=== PATIENT | male | born 1955 ===

== ENCOUNTER 2016-06-21 16:52 | Observation (INO) | payer OTHER ==
[2016-06-21 16:58] VITALS: BP 141/64; PULSE 108; RESP 19; TEMP 98.3; O2SAT 94
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
--- NOTE | 2016-06-21 22:48 | ED PDOC ---
- ECG O2 Sat by Pulse Oximetry: 94 Medical Decision Making Medical Decision Making: Pt monitored in the ER. Clear speech and steady gait at discharge. Disposition - Clinical Impression Clinical Impression: Alcohol ingestion - POA Present On Arrival: None - Disposition Disposition: Routine/Home Disposition Time: 22:48 Condition: GOOD
== END 2016-06-21 22:45 | disposition home or self-care (01) ==
LOC: H.ER 16:52 → H.EROBSV 17:22
PROVIDERS: ADMIT Emergency Medicine; ATTEND Emergency Medicine
DX: F10.129 Alcohol abuse with intoxication, unspecified (principal); Y90.8 Blood alcohol level of 240 mg/100 ml or more; F20.9 Schizophrenia, unspecified

== ENCOUNTER 2016-06-24 23:46 | Emergency (ER) | payer OTHER ==
--- NOTE | 2016-06-25 05:34 | ED PDOC ---
HPI: Psych/Substance Abuse Time Seen by Provider: 06/25/16 00:09 Chief Complaint (Nursing): Alcohol Ingestion Chief Complaint (Provider): ETOH History Per: EMS Additional History Per: EMS Additional Complaint(s): 61 y/o male brought in by EMS for acute alcohol intoxication. Patient responsive to verbal stimuli; admits to drinking, denies acute complaints. Past Medical History Reviewed: Historical Data, Nursing Documentation, Vital Signs Vital Signs: Last Vital Signs Temp 99.0 F 06/24/16 23:51 Pulse 76 06/24/16 23:51 Resp 16 06/24/16 23:51 BP 136/89 06/24/16 23:51 Pulse Ox 95 06/24/16 23:51 - Medical History PMH: Schizophrenia - Family History Family History: States: Unknown Family Hx - Immunization History Hx Tetanus Toxoid Vaccination: No Hx Influenza Vaccination: No Hx Pneumococcal Vaccination: No - Home Medications Home Medications: Ambulatory Orders Medication Instructions Recorded No Known Home Med [No Known Home 07/06/13 Med] - Allergies Allergies/Adverse Reactions: Allergies Allergy/AdvReac Type Severity Reaction Status Date / Time No Known Allergies Allergy Verified 06/24/16 23:50 Review of Systems ROS Statement: Except As Marked, All Systems Reviewed And Found Negative Physical Exam - Reviewed Nursing Documentation Reviewed: Yes Vital Signs Reviewed: Yes - Physical Exam Appears: Positive for: Well, Non-toxic, No Acute Distress Head Exam: Positive for: ATRAUMATIC, NORMAL INSPECTION, NORMOCEPHALIC Skin: Positive for: Normal Color Eye Exam: Positive for: Normal appearance, EOMI, PERRL ENT: Positive for: Normal ENT Inspection Cardiovascular/Chest: Positive for: Regular Rate, Rhythm Respiratory: Positive for: Normal Breath Sounds Gastrointestinal/Abdominal: Positive for: Normal Exam Back: Positive for: Normal Inspection Extremity: Positive for: Normal ROM Neurologic/Psych: Positive for: Alert, Oriented - ECG O2 Sat by Pulse Oximetry: 95 - Progress ED Course And Treament: accucheck, alcohol 5:30 Patient awake, alert, oriented x3. Ambulating steady gait. Tolerated food tray Stable for discharge. Disposition - Clinical Impression Clinical Impression: Alcohol intoxication - Patient ED Disposition Is Patient to be Admitted: No Counseled Patient/Family Regarding: Studies Performed, Diagnosis, Need For Followup - Disposition Disposition: Routine/Home Disposition Time: 05:33 Condition: STABLE Instructions: Alcohol Intoxication (ED) Print Language: MACEDONIAN
[2016-06-25 07:18] VITALS: BP 125/73; PULSE 87; RESP 18; TEMP 98; O2SAT 100
== END 2016-06-25 07:18 | disposition home or self-care (01) ==
LOC: H.ER 23:46
DX: F10.129 Alcohol abuse with intoxication, unspecified (principal); Y90.8 Blood alcohol level of 240 mg/100 ml or more

== ENCOUNTER 2016-06-25 10:10 | Inpatient (IN) | payer OTHER ==
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
[2016-06-25 12:39] LABS: BASO % 0.9 % (0.0-2.0); HEMATOCRIT 40.7 % (35.0-51.0); LYMPH # 0.6 K/uL (1.0-4.3); LYMPH % 14.6 % (20.0-40.0); MEAN CELL VOLUME 97.2 fl (80.0-94.0); MEAN CORPUSCULAR HGB CONC 33.9 g/dL (33.0-37.0); MEAN PLATELET VOLUME 8.6 fl (7.2-11.7); MONO # 0.4 K/uL (0.0-0.8); MONO % 8.8 % (0.0-10.0); NEUT # 3.1 K/uL (1.8-7.0); NEUT % 74.7 % (50.0-75.0); NRBC % 0.1 % (0.0-0.0); RED CELL DISTRIBUTION WIDTH 14.8 % (11.5-14.5); WHITE BLOOD COUNT 4.2 K/uL (4.8-10.8)
[2016-06-25 12:48] LABS: ALB/GLOB RATIO 1.2 (1.0-2.1); ALCOHOL SERUM < 10 mg/dl (0-10); ALKALINE PHOSPHATASE 96 U/L (38-126); ALT/SGPT 109 U/L (21-72); AST/SGOT 223 U/L (17-59); BLOOD UREA NITROGEN 10 mg/dl (9-20); CALCIUM 9.2 mg/dL (8.4-10.2); CARBON DIOXIDE 27 mmol/L (22-30); CHLORIDE 101 mmol/L (98-107); GFR AFRICAN-AMERICAN > 60; GLUCOSE,RANDOM 97 mg/dL (75-110); POTASSIUM 4.1 MMOL/L (3.6-5.0); SODIUM 142 mmol/l (132-148); TOTAL PROTEIN 7.6 G/DL (6.3-8.2)
[2016-06-25 14:36] LABS: RBC URINE 1 /hpf (0-3); URINE BILIRUBIN NEGATIVE (NEGATIVE); URINE BLOOD NEGATIVE (NEGATIVE); URINE COLOR YELLOW (YELLOW); URINE GLUCOSE (UA) 50 mg/dL (Normal); URINE KETONE NEGATIVE (NEGATIVE); URINE LEUKOCYTE ESTERASE NEG Leu/uL (Negative); URINE PROTEIN NEGATIVE (NEGATIVE); WBC URINE < 1 /hpf (0-5)
[2016-06-25] MEDS ORDERED: Iohexol 300 100 ML IJ ONE (15:26)
[2016-06-25] MEDS ORDERED: Sodium Chloride 0.9% 50 ML IV ONE (15:27)
--- NOTE | 2016-06-25 17:16 | CT ---
PROCEDURE: CT Abdomen and Pelvis with contrast HISTORY: elevated liver enzymes, abd pain COMPARISON: None. TECHNIQUE: Axial and reformatted coronal and sagittal CT images of the abdomen and pelvis were obtained after IV contrast administration. Contrast dose: 90 mL of Omnipaque 300 Radiation dose: Total exam DLP = 554.3 mGy-cm. This CT exam was performed using one or more of the following dose reduction techniques: Automated exposure control, adjustment of the mA and/or kV according to patient size, and/or use of iterative reconstruction technique. FINDINGS: LOWER THORAX: No evidence of acute pathology. LIVER: Moderate hepatomegaly and moderate diffuse low-attenuation of the liver suggestive of hepatic steatosis. GALLBLADDER AND BILE DUCTS: Gallstones are seen at the gallbladder neck. Mild thickening of the gallbladder wall seen. No definite CT evidence of acute cholecystitis. PANCREAS: Unremarkable. No gross lesion or ductal dilatation. SPLEEN: Unremarkable. ADRENALS: Unremarkable. No mass. KIDNEYS AND URETERS: Unremarkable. No hydronephrosis. No solid mass. VASCULATURE: Unremarkable. No aortic aneurysm. BOWEL: Small bowel small bowel intussusceptions seen at the left upper abdomen. No evidence of bowel obstruction. Mild constipation is noted. APPENDIX: No evidence of appendicitis. PERITONEUM: Unremarkable. No free fluid. No free air. LYMPH NODES: Mildly enlarged left external iliac chain lymph nodes seen. BLADDER: Unremarkable. REPRODUCTIVE: Mildly enlarged prostate. BONES: No acute fracture. OTHER FINDINGS: None. IMPRESSION: [id number] hepatomegaly and moderate hepatic steatosis. Small to moderate size hiatus hernia. Gallstones seen at the gallbladder neck. No definite CT evidence of acute cholecystitis. Small bowel small bowel intussusceptions seen at the left upper abdomen of uncertain etiology. No evidence of bowel obstruction. Mild constipation.
[2016-06-25 19:19] VITALS: O2SAT 100
[2016-06-25] MEDS ORDERED: Magnesium Hydroxide Susp 30 ml UD PO PRN (19:49)
[2016-06-25] MEDS ORDERED: DiphenhydrAMINE 50 mg/ml Inj IM PRN (19:49)
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
[2016-06-26 08:09] LABS: T4 6.35 ug/dl (5.5-11.0)
[2016-06-26 08:24] LABS: THYROID STIMULATING HORMONE 2.85 mIU/ML (0.46-4.68)
[2016-06-26] MEDS: Multivitamin With Minerals Tab PO SCH (08:46)
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
--- NOTE | 2016-06-26 18:12 | CARD ---
APPROVED REPORT EKG Measurement Heart [id number] <Conclusion> Normal sinus rhythm Possible Left atrial enlargement Borderline ECG
[2016-06-27] MEDS: Multivitamin With Minerals Tab PO SCH (08:39)
--- NOTE | 2016-06-27 11:30 | PCM.PYCHPN ---
Psychiatric Progress Note - Psychiatric Progress Note Patient seen today, length of contact: discussed with team Patient Chief Complaint: i feel a little better Problems Identified/Issues Discussed: pt not c/o voices when seen today. he is without gross tremors, but hr is somewhat elevated. denies withdrawal symptoms. Medication Change: Yes (start to taper ativan) Medical Record Reviewed: Yes Mental Status Examination - Cognitive Function Orientation: Person, Place, Situation, Time Memory: Intact Attention: WNL Association: [facility] Fund of Knowledge: [facility] Decription of patient's judgement and insights: fair - Mood Mood: Neutral - Affect Affect: Constricted - Formal Thought Process Formal Thought Process: Other (Poverty of speech) Psychotic Thoughts and Behaviors: pt is internally preoccupied - Suicidal Ideation Suicidal Ideation: No - Homicidal Ideation Homicidal Ideation: No Goal/Treatment Plan - Goal/Treatment Plan Need for Continued Stay: Remain at risks for inpatient hospitalization, Severe functional impairment Progress Toward Problem(s) and Goals/Treatment Plan: alcohol abuse schizoaffective disorder will start to taper ativan today continue with risperdal and titrate as tolerated/indicated Estimated Date of D/C: 07/02/16
[2016-06-28] MEDS: Multivitamin With Minerals Tab PO SCH (09:15)
--- NOTE | 2016-06-28 12:21 | PCM.PYCHPN ---
Psychiatric Progress Note - Psychiatric Progress Note Patient seen today, length of contact: discussed with team Patient Chief Complaint: i still hear some voices Problems Identified/Issues Discussed: pt states he has been hearing some voices today. he denies any withdrawal symptoms. he states he feels safe in hospital. he is vague in answers and states he's been drinking on the streets for some time. Medication Change: Yes (lower ativan) Medical Record Reviewed: Yes Mental Status Examination - Cognitive Function Orientation: Person, Place, Situation, Time Memory: Intact Attention: WNL Association: [facility] Fund of Knowledge: [facility] Decription of patient's judgement and insights: fair - Mood Mood: Neutral - Affect Affect: Constricted - Formal Thought Process Formal Thought Process: Hallucinations (vauge reports), Other (Poverty of speech ) - Suicidal Ideation Suicidal Ideation: No - Homicidal Ideation Homicidal Ideation: No Goal/Treatment Plan - Goal/Treatment Plan Need for Continued Stay: Remain at risks for inpatient hospitalization, Severe functional impairment Progress Toward Problem(s) and Goals/Treatment Plan: alcohol abuse schizoaffective disorder will continue to taper ativan today continue with risperdal and titrate as tolerated/indicated Estimated Date of D/C: 07/02/16
[2016-06-29] MEDS: Multivitamin With Minerals Tab PO SCH (08:25)
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
[2016-06-30] MEDS: Multivitamin With Minerals Tab PO SCH (08:33)
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
[2016-07-01] MEDS: Multivitamin With Minerals Tab PO SCH (09:05)
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
[2016-07-02] MEDS: Multivitamin With Minerals Tab PO SCH (09:15)
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
[2016-07-03] MEDS: Multivitamin With Minerals Tab PO SCH (09:38)
[2016-07-03] MEDS: Alum-Mag Hydrox-Simethicone Susp (30 mL) PO PRN (20:32)
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
[2016-07-04] MEDS: Multivitamin With Minerals Tab PO SCH (08:45)
--- NOTE | 2016-07-04 11:42 | PCM.PYCHPN ---
Psychiatric Progress Note - Psychiatric Progress Note Patient seen today, length of contact: discussed with team Patient Chief Complaint: no c/o Problems Identified/Issues Discussed: pt resting comfortably currently. seen by hospitalist when he was found on his knees on floor earlier. no injury. pt seems less bothered by voices today. no evidence of side effects. Medication Change: No Medical Record Reviewed: Yes Mental Status Examination - Cognitive Function Orientation: Person, Place, Situation, Time Memory: Intact Attention: WNL Association: [employer] Fund of Knowledge: [facility] Decription of patient's judgement and insights: variable - Mood Mood: Neutral - Affect Affect: Constricted - Speech Speech: Slurred (Mumbles at times) - Formal Thought Process Formal Thought Process: Loosening of associations, Other (Poverty of speech) - Suicidal Ideation Suicidal Ideation: No - Homicidal Ideation Homicidal Ideation: No Goal/Treatment Plan - Goal/Treatment Plan Need for Continued Stay: Remain at risks for inpatient hospitalization, Discharge may exacerbated symptoms, Severe functional impairment Progress Toward Problem(s) and Goals/Treatment Plan: alcohol abuse schizoaffective disorder coontinue current treatment per team Estimated Date of D/C: 07/09/16
[2016-07-05] MEDS: Multivitamin With Minerals Tab PO SCH (08:43)
[2016-07-05] MEDS ORDERED: Albuterol-Ipratrop 3 mg / 0.5 (3 ml) UD ONE (13:25)
--- NOTE | 2016-07-05 14:31 | PCM.PYCHPN ---
Psychiatric Progress Note - Psychiatric Progress Note Patient seen today, length of contact: discussed with team Patient Chief Complaint: no c/o Problems Identified/Issues Discussed: pt without medication side effects. calm. appears internally preoccupied Medication Change: No Medical Record Reviewed: Yes Mental Status Examination - Cognitive Function Orientation: Person, Place, Situation, Time Memory: Intact Attention: WNL Association: [employer] Fund of Knowledge: WNL Decription of patient's judgement and insights: variable - Mood Mood: Neutral - Affect Affect: Constricted - Speech Speech: Slurred (Mumbles at times) - Formal Thought Process Formal Thought Process: Loosening of associations, Other (Poverty of speech) - Suicidal Ideation Suicidal Ideation: No - Homicidal Ideation Homicidal Ideation: No Goal/Treatment Plan - Goal/Treatment Plan Need for Continued Stay: Remain at risks for inpatient hospitalization, Discharge may exacerbated symptoms, Severe functional impairment Progress Toward Problem(s) and Goals/Treatment Plan: alcohol abuse schizoaffective disorder coontinue current treatment per team Estimated Date of D/C: 07/09/16
[2016-07-06] MEDS: Multivitamin With Minerals Tab PO SCH (08:52)
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
[2016-07-06] MEDS: Alum-Mag Hydrox-Simethicone Susp (30 mL) PO PRN (20:47)
[2016-07-07] MEDS: Multivitamin With Minerals Tab PO SCH (08:39)
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
[2016-07-08] MEDS: Multivitamin With Minerals Tab PO SCH (08:21)
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
[2016-07-09] MEDS: Multivitamin With Minerals Tab PO SCH (09:27)
[2016-07-10] MEDS ORDERED: Alum-Mag Hydrox-Simethicone Susp (30 mL) PO PRN (05:32)
[2016-07-10] MEDS ORDERED: DiphenhydrAMINE 50 mg/ml Inj IM PRN (05:32)
[2016-07-10] MEDS ORDERED: Magnesium Hydroxide Susp 30 ml UD PO PRN (05:32)
[2016-07-10] MEDS: Multivitamin With Minerals Tab PO SCH (08:32)
--- NOTE | 2016-07-10 09:43 | PCM.PYCHPN ---
Psychiatric Progress Note - Psychiatric Progress Note Patient seen today, length of contact: discussed with team Patient Chief Complaint: no c/o Problems Identified/Issues Discussed: pt without medication side effects. calm. appears less internally preoccupied. sleeping is improved Medication Change: No Medical Record Reviewed: Yes Mental Status Examination - Cognitive Function Orientation: Person, Place, Situation, Time Memory: Intact Attention: WNL Concentration: WNL Association: Loose Fund of Knowledge: WNL Decription of patient's judgement and insights: improving - Mood Mood: Neutral - Affect Affect: Constricted - Speech Speech: Appropriate - Formal Thought Process Formal Thought Process: Delusions, Loosening of associations Psychotic Thoughts and Behaviors: improving - Suicidal Ideation Suicidal Ideation: No - Homicidal Ideation Homicidal Ideation: No Goal/Treatment Plan - Goal/Treatment Plan Need for Continued Stay: Remain at risks for inpatient hospitalization, Discharge may exacerbated symptoms, Severe functional impairment Progress Toward Problem(s) and Goals/Treatment Plan: alcohol abuse schizoaffective disorder continue current treatment per team Estimated Date of D/C: 07/14/16
[2016-07-11] MEDS: Multivitamin With Minerals Tab PO SCH (08:41)
--- NOTE | 2016-07-11 10:31 | PCM.PYCHPN ---
Psychiatric Progress Note - Psychiatric Progress Note Patient seen today, length of contact: discussed with team Patient Chief Complaint: pt has been still internally preoccupied and still paranoid and need further stabilization DSM 5 Symptoms Update: schizopaffective disorder Medication Change: No Medical Record Reviewed: Yes Mental Status Examination - Cognitive Function Orientation: Person, Place, Situation, Time Memory: Intact Attention: WNL Concentration: WNL Association: Loose Fund of Knowledge: WNL - Mood Mood: Neutral - Affect Affect: Constricted - Speech Speech: Appropriate - Formal Thought Process Formal Thought Process: Delusions, Loosening of associations - Suicidal Ideation Suicidal Ideation: No - Homicidal Ideation Homicidal Ideation: No Goal/Treatment Plan - Goal/Treatment Plan Need for Continued Stay: Remain at risks for inpatient hospitalization, Discharge may exacerbated symptoms, Severe functional impairment Progress Toward Problem(s) and Goals/Treatment Plan: will continue to stabilize the pt with meds . Estimated Date of D/C: 07/14/16
[2016-07-12] MEDS: Multivitamin With Minerals Tab PO SCH (08:22)
--- NOTE | 2016-07-12 16:26 | PCM.PYCHPN ---
Psychiatric Progress Note - Psychiatric Progress Note Patient seen today, length of contact: discussed with team Patient Chief Complaint: pt has been still internally preoccupied and still paranoid and need further stabilization Medication Change: No Medical Record Reviewed: Yes Mental Status Examination - Cognitive Function Orientation: Person, Place, Situation, Time Memory: Intact Attention: WNL Concentration: WNL Association: Loose Fund of Knowledge: WNL - Mood Mood: Neutral - Affect Affect: Constricted - Speech Speech: Appropriate - Formal Thought Process Formal Thought Process: Delusions, Loosening of associations - Suicidal Ideation Suicidal Ideation: No - Homicidal Ideation Homicidal Ideation: No Goal/Treatment Plan - Goal/Treatment Plan Need for Continued Stay: Remain at risks for inpatient hospitalization, Discharge may exacerbated symptoms, Severe functional impairment Progress Toward Problem(s) and Goals/Treatment Plan: will continue to stabilize the pt with meds . Estimated Date of D/C: 07/14/16
[2016-07-13] MEDS: Multivitamin With Minerals Tab PO SCH (08:44)
--- NOTE | 2016-07-13 09:40 | PCM.PYCHPN ---
Psychiatric Progress Note - Psychiatric Progress Note Patient seen today, length of contact: discussed with team Patient Chief Complaint: no c/o Problems Identified/Issues Discussed: pt denies medication side effects. no aggression. no agitation. Medication Change: No Medical Record Reviewed: Yes Mental Status Examination - Cognitive Function Orientation: Person, Place, Situation, Time Memory: Intact Attention: WNL Concentration: WNL Association: Loose Fund of Knowledge: WNL Decription of patient's judgement and insights: improving - Mood Mood: Neutral - Affect Affect: Constricted - Speech Speech: Appropriate - Formal Thought Process Formal Thought Process: Delusions, Loosening of associations - Suicidal Ideation Suicidal Ideation: No - Homicidal Ideation Homicidal Ideation: No Goal/Treatment Plan - Goal/Treatment Plan Need for Continued Stay: Remain at risks for inpatient hospitalization, Discharge may exacerbated symptoms, Severe functional impairment Progress Toward Problem(s) and Goals/Treatment Plan: alcohol abuse schizoaffective disorder continue current treatment per team Estimated Date of D/C: 07/14/16
[2016-07-14] MEDS: Multivitamin With Minerals Tab PO SCH (08:05)
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
[2016-07-14 15:57] VITALS: BP 152/91; PULSE 82; RESP 20; TEMP 98.1
== END 2016-07-14 15:30 | disposition home or self-care (01) | DRG 430 ==
LOC: H.ER 10:10 → H.ERHOLD 17:24 → H.STEP 19:47
PROVIDERS: ADMIT Psychiatry & Neurology Psychiatry; ATTEND Psychiatry & Neurology Psychiatry
PROC: GZ51ZZZ Individual Psychotherapy, Behavioral (ICD-10-PCS; 2016-06-26)
PROC: GZHZZZZ Group Psychotherapy (ICD-10-PCS; principal; 2016-06-29)
DX: F20.9 Schizophrenia, unspecified (principal); Z59.0 Homelessness; F10.239 Alcohol dependence with withdrawal, unspecified; B35.1 Tinea unguium; K80.20 Calculus of gallbladder without cholecystitis without obstruction

== ENCOUNTER 2017-07-06 10:12 | Emergency (ER) | payer MEDICAID, OTHER ==
[2017-07-06 10:26] VITALS: BP 141/84; PULSE 86; RESP 20; TEMP 97; O2SAT 100
[2017-07-06 10:27] VITALS: BMI 27.4
--- NOTE | 2017-07-06 12:42 | ED PDOC ---
HPI: Psych/Substance Abuse Time Seen by Provider: 07/06/17 11:17 Chief Complaint (Nursing): Medical Clearance Chief Complaint (Provider): Medical clearance History Per: Patient History/Exam Limitations: no limitations Onset/Duration Of Symptoms: Hrs (today) Current Symptoms Are (Timing): Still Present Suicide/Self Injury Attempted (Context): None Associated Symptoms: Other (chronic back pain). denies: Suicidal Thoughts, Suicidal Plan Involuntary Hold By: Local Law Enforcement Additional Complaint(s): Prem Lenz is a 62 year old male who was brought to the emergency department by PD for medical and psychiatric clearance for incarceration. Patient does admit to drinking earlier today, but cannot quantify how much. He also reports mild back pain. Patient states in 1983 he had a back injury and has chronic pain since. He did not take any medication for pain prior to arrival. He denies any recent falls/trauma, saddle anesthesia, weakness/numbness, fever, flank pain, abdominal pain, n/v/d, chest pain. Patient denies suicidal or homicidal ideation. Patient is non domicile. No further medical complaints at this time. PMD: None provided. Past Medical History Reviewed: Historical Data, Nursing Documentation, Vital Signs Vital Signs: Last Vital Signs Temp 97 F L 07/06/17 10:25 Pulse 86 07/06/17 10:25 Resp 20 07/06/17 10:23 BP 141/84 07/06/17 10:25 Pulse Ox 100 07/06/17 10:25 - Medical History PMH: Schizophrenia Denies: Diabetes, Hepatitis, HIV, HTN, Seizures, Sexually Transmitted Disease - Surgical History Surgical History: No Surg Hx - Family History Family History: States: Unknown Family Hx - Living Arrangements Living Arrangements: Other (homeless) - Social History Current smoker - smoking cessation education provided: Yes (whenever he can bum a cig) Alcohol: > 2 Drinks/Day Drugs: Denies - Home Medications Home Medications: Ambulatory Orders Medication Instructions Recorded Ammonium Lactate 12% [Lac-Hydrin 1 applic TOP BID #1 bottle 07/14/16 12% Lotion (225 g)] Folic Acid 1 mg PO DAILY tab 07/14/16 Multimineral/Multivitamin 1 tab PO DAILY tab 07/14/16 [Therapeutic-M Tab] Nicotine 21 mg/24 hr [Nicoderm Cq] 1 patch TD DAILY #30 patch 07/14/16 QUEtiapine [SEROquel] 400 mg PO HS #60 tab 07/14/16 Thiamine [Vitamin B1 Tab] 100 mg PO DAILY tab 07/14/16 - Allergies Allergies/Adverse Reactions: Allergies Allergy/AdvReac Type Severity Reaction Status Date / Time No Known Allergies Allergy Verified 07/06/17 10:23 Review of Systems ROS Statement: Except As Marked, All Systems Reviewed And Found Negative Musculoskeletal: Positive for: Back Pain (mild) Psych: Positive for: Other (ETOH use). Negative for: Suicidal ideation Physical Exam - Reviewed Nursing Documentation Reviewed: Yes Vital Signs Reviewed: Yes - Physical Exam Appears: Positive for: Non-toxic (disheveled), No Acute Distress (resting comfortably) Head Exam: Positive for: ATRAUMATIC, NORMOCEPHALIC Skin: Positive for: Normal Color, Warm, Dry Eye Exam: Positive for: EOMI, PERRL, Conjunctival injection (bilateral) ENT: Positive for: Pharynx Is (clear, uvula midline), Other (Mucus membranes moist.) Neck: Positive for: Painless ROM, Supple Cardiovascular/Chest: Positive for: Regular Rate, Rhythm Respiratory: Positive for: Normal Breath Sounds. Negative for: Decreased Breath Sounds, Accessory Muscle Use, Respiratory Distress Gastrointestinal/Abdominal: Positive for: Soft. Negative for: Tenderness, Mass , Distended, Guarding, Rebound Back: Positive for: Other (Bilateral paralumbar tenderness. No midline tenderness.) Extremity: Positive for: Normal ROM (all extremities). Negative for: Pedal Edema, Calf Tenderness Neurologic/Psych: Positive for: Alert, Oriented (x3), Gait (steady in ED). Negative for: Aphasia, Facial Droop - ECG O2 Sat by Pulse Oximetry: 100 (RA) Pulse Ox Interpretation: Normal Medical Decision Making Medical Decision Making: Initial Impression: Chronic back pain, medical and psych clearance. Initial Plan: --Alcohol serum --Crisis evaluation --Tylenol 325mg tab 650 mg PO --Reevaluation Per Crisis evaluation, patient to be discharged with the diagnosis of Schizophrenia per Dr Moise. On re-evaluation, patient reports improvement of symptoms. On exam, patient remains AAOx3, in no acute distress. Lungs clear to auscultation, cardiac RRR, abdomen soft, non-tender, repeat neuro exam shows no focal findings. VSS, stable for discharge into PD custody. Lab/Diagnostic results d/w the patient in great detail. Diagnosis of schizophrenia, medical/psychiatric clearance for incarceration d/w the patient. Based on history, exam and diagnostic results, plan will be for follow up while incarcerated. Return to the emergency room at any time for any new or worsening symptoms. Patient states he fully agrees with and understands discharge instructions. States that he agrees with the plan and disposition. Verbalized and repeated discharge instructions and plan. I have given the patient opportunity to ask any additional questions. Scribe Attestation: Documented by Que Jimenez, acting as a scribe for Vira Bishop PA-C Provider Scribe Attestation: All medical record entries made by the Scribe were at my direction and personally dictated by me. I have reviewed the chart and agree that the record accurately reflects my personal performance of the history, physical exam, medical decision making, and the department course for this patient. I have also personally directed, reviewed, and agree with the discharge instructions and disposition. Disposition - Clinical Impression Clinical Impression: Schizophrenia, Medical clearance for incarceration, Chronic back pain greater than 3 months duration - Patient ED Disposition Is Patient to be Admitted: No Counseled Patient/Family Regarding: Diagnosis, Need For Followup - Disposition Disposition: Discharged/Transfer to Law Enforcement Disposition Time: 13:42 Condition: FAIR Additional Instructions: PATIENT IS MEDICALLY AND PSYCHIATRICALLY STABLE FOR INCARCERATION. Instructions: Schizophrenia, General (DC), Chronic Pain (DC) Forms: [employer] (Martiniquais) Print Language: MAORI - POA Present On Arrival: None Results - Lab Results Lab Results: 07/06/17 12:50 Alcohol, Quantitative < 10
== END 2017-07-06 14:23 | disposition home or self-care (01) ==
LOC: H.ER 10:12
DX: F20.9 Schizophrenia, unspecified (principal); M54.9 Dorsalgia, unspecified; G89.29 Other chronic pain; F17.200 Nicotine dependence, unspecified, uncomplicated

== ENCOUNTER 2017-10-18 19:02 | Emergency (ER) | payer MEDICAID, OTHER ==
[2017-10-18 19:02] VITALS: BMI 27.4
[2017-10-18 19:12] VITALS: RESP 18; O2SAT 97
--- NOTE | 2017-10-18 20:06 | ED PDOC ---
HPI: Psych/Substance Abuse Time Seen by Provider: 10/18/17 19:10 Chief Complaint (Nursing): Alcohol Ingestion Chief Complaint (Provider): Alcohol Ingestion ED Caveat: Intoxicated History Per: Patient, EMS History/Exam Limitations: intoxication Modifying Factor(s): Alcohol Additional Complaint(s): 62 y/o male brought to the ED by [facility] after being found intoxicated on the street. Unable to obtain history due to patient's intoxicated state. No reports of trauma at this time. Patient not verbalizing any complaints at this time. PMD: None Provided. Past Medical History Reviewed: Historical Data, Nursing Documentation, Vital Signs Vital Signs: Last Vital Signs Temp 97 F L 10/18/17 19:10 Pulse 78 10/18/17 19:10 Resp 18 10/18/17 19:10 BP 130/78 10/18/17 19:10 Pulse Ox 97 10/18/17 19:10 - Medical History PMH: Schizophrenia - Surgical History Surgical History: No Surg Hx - Family History Family History: States: Unknown Family Hx - Living Arrangements Living Arrangements: Other (homeless) - Social History Alcohol: > 2 Drinks/Day - Home Medications Home Medications: Ambulatory Orders Medication Instructions Recorded Ammonium Lactate 12% [Lac-Hydrin 1 applic TOP BID #1 bottle 07/14/16 12% Lotion (225 g)] Folic Acid 1 mg PO DAILY tab 07/14/16 Multimineral/Multivitamin 1 tab PO DAILY tab 07/14/16 [Therapeutic-M Tab] Nicotine 21 mg/24 hr [Nicoderm Cq] 1 patch TD DAILY #30 patch 07/14/16 QUEtiapine [SEROquel] 400 mg PO HS #60 tab 07/14/16 Thiamine [Vitamin B1 Tab] 100 mg PO DAILY tab 07/14/16 - Allergies Allergies/Adverse Reactions: Allergies Allergy/AdvReac Type Severity Reaction Status Date / Time No Known Allergies Allergy Verified 07/06/17 10:23 Review of Systems Review Of Systems: ROS cannot be obtained secondary to pt's inabilty to answer questions. Physical Exam - Reviewed Nursing Documentation Reviewed: Yes Vital Signs Reviewed: Yes - Physical Exam Comments: GENERAL APPEARANCE: Patient is intoxicated, somnolent, but in no acute distress. (+) alcohol on breath SKIN: Warm, dry; (-) cyanosis HEAD: (-) scalp swelling or hematoma. NECK: Supple ENT: Mucus membranes moist. Airway patent, (-) stridor. EYES: (+) bilateral conjunctival injection. HEART AND CARDIOVASCULAR: (-) irregularity CHEST AND RESPIRATORY: (-) rales, (-) rhonchi, (-) wheezes; breath sounds equal. Respirations even and nonlabored. NEURO AND PSYCH: Mental status as above. Affect: flat. EOMI; (-) facial asymmetry; (+) slurred speech - ECG O2 Sat by Pulse Oximetry: 97 (RA) Pulse Ox Interpretation: Normal Medical Decision Making Medical Decision Making: Time: 1919 Impression: EtOH Intoxication Plan: -- Alcohol Serum -- Accucheck: 72 -- Re-evaluation -- Clinical Sobriety 2035 Alcohol Serum: 402 2200 Patient sleeping comfortably on re-evaluation. Easily arousable. 0000 Case endorsed to Jeremie Cantu PA-C pending re-evaluation, clinical sobriety, and further disposition. Vitals stable. Pertinent details reviewed. Scribe Attestation: Documented by Lamont Hernandez, acting as a scribe for Vira Bishop PA-C. Provider Scribe Attestation: All medical record entries made by the Scribe were at my direction and personally dictated by me. I have reviewed the chart and agree that the record accurately reflects my personal performance of the history, physical exam, medical decision making, and the department course for this patient. I have also personally directed, reviewed, and agree with the discharge instructions and disposition. Disposition - Clinical Impression Clinical Impression: Alcohol intoxication - Patient ED Disposition Is Patient to be Admitted: Transfer of Care (Case endorsed to Jeremie Cantu PA-C pending re-evaluation, clinical sobriety, and further disposition.) - Disposition Disposition: Transfer of Care (Case endorsed to Jeremie Cantu PA-C pending re- evaluation, clinical sobriety, and further disposition.) Disposition Time: 00:00 Condition: FAIR - POA Present On Arrival: None Results - Lab Results Lab Results: 10/18/17 10/18/17 20:05 19:45 POC Glucose (mg/dL) 74 Alcohol, Quantitative 402 H*
--- NOTE | 2017-10-19 03:48 | ED PDOC ---
- ECG O2 Sat by Pulse Oximetry: 97 (RA) Pulse Ox Interpretation: Normal Medical Decision Making Medical Decision Making: Pt endorsed to property underwriter pending sobriety at 0000. Pt monitored in Er overnight. Vitals stable. Disposition - Clinical Impression Clinical Impression: Alcohol intoxication - POA Present On Arrival: None - Disposition Disposition: Routine/Home Disposition Time: 05:33 Condition: GOOD Instructions: Alcohol Abuse and Alcoholism (DC) Forms: [employer] (Trinidadian)
[2017-10-19 05:48] VITALS: BP 136/89; PULSE 87
[2017-10-19 06:17] VITALS: TEMP 99
== END 2017-10-19 06:17 | disposition home or self-care (01) ==
LOC: H.ER 19:02
DX: F10.129 Alcohol abuse with intoxication, unspecified (principal); F20.9 Schizophrenia, unspecified

== ENCOUNTER 2018-04-02 | Emergency (ER) | payer OTHER ==
[2018-04-02] VITALS: BMI 27.4
--- NOTE | 2018-04-02 01:05 | ED PDOC ---
HPI: Psych/Substance Abuse Time Seen by Provider: 04/02/18 00:29 Chief Complaint (Nursing): Alcohol Ingestion Chief Complaint (Provider): Alcohol Ingestion ED Caveat: Intoxicated History Per: Patient History/Exam Limitations: intoxication Additional Complaint(s): 63 y/o male was brought to the ED by EMS for alcohol intoxication. Per EMS, patient was found sleeping on the street and smelled of alcohol. On arrival to the ED patient is sleeping and completely unable to give history. Past Medical History Reviewed: Historical Data, Nursing Documentation, Vital Signs, Unable To Obtain - Medical History PMH: No Chronic Diseases, Schizophrenia Denies: Diabetes, Hepatitis, HIV, HTN, Seizures, Sexually Transmitted Disease - Surgical History Surgical History: No Surg Hx - Family History Family History: States: Unknown Family Hx - Immunization History Hx Tetanus Toxoid Vaccination: No Hx Influenza Vaccination: No Hx Pneumococcal Vaccination: No - Home Medications Home Medications: Ambulatory Orders Medication Instructions Recorded RX: Ammonium Lactate 12% 1 applic TOP BID #1 bottle 07/14/16 [Lac-Hydrin 12% Lotion (225 g)] RX: Folic Acid 1 mg PO DAILY tab 07/14/16 RX: Multimineral/Multivitamin 1 tab PO DAILY tab 07/14/16 [Therapeutic-M Tab] RX: Nicotine 21 mg/24 hr [Nicoderm 1 patch TD DAILY #30 patch 07/14/16 Cq] RX: QUEtiapine [SEROquel] 400 mg PO HS #60 tab 07/14/16 RX: Thiamine [Vitamin B1 Tab] 100 mg PO DAILY tab 07/14/16 - Allergies Allergies/Adverse Reactions: Allergies Allergy/AdvReac Type Severity Reaction Status Date / Time No Known Allergies Allergy Verified 04/02/18 00:06 Review of Systems Review Of Systems: ROS cannot be obtained secondary to pt's inabilty to answer questions. Physical Exam - Physical Exam Appears: Positive for: No Acute Distress Head Exam: Positive for: ATRAUMATIC, NORMOCEPHALIC Skin: Positive for: Normal Color, Warm, DRY Eye Exam: Positive for: PERRL Cardiovascular/Chest: Positive for: Regular Rate, Rhythm Neurologic/Psych: Negative for: Alert (obtunded), Oriented, Motor/Sensory Deficits - Laboratory Results Result Diagrams: 04/02/18 05:05 04/02/18 05:05 Medical Decision Making Medical Decision Making: Time: 00:29 Initial Impression: AMS in setting of alcohol intoxication and substance abuse Initial Plan: * Observe * Reassess 07:00 Patient care endorsed to Dr. Alcantara pending clinical sobriety. Scribe Attestation: Documented by Suhail Calvin acting as a scribe for Ly Faust MD Provider Scribe Attestation: All medical record entries made by the Scribe were at my direction and personally dictated by me. I have reviewed the chart and agree that the record accurately reflects my personal performance of the history, physical exam, medical decision making, and the department course for this patient. I have also personally directed, reviewed, and agree with the discharge instructions and disposition. Disposition - Clinical Impression Clinical Impression: Alcohol intoxication - Patient ED Disposition Is Patient to be Admitted: Transfer of Care - Disposition Disposition: Transfer of Care Disposition Time: 07:00 Condition: STABLE Instructions: Alcohol Abuse and Alcoholism (DC) Forms: [employer] (Algerian) Patient Signed Over To: Nayana Alcantara
[2018-04-02] MEDS ORDERED: Sodium Chloride 0.9% 1,000 ML IV STA (04:35)
[2018-04-02] MEDS ORDERED: Multivitamin (MVI) 10 ML, Thiamine 100 MG, Folic Acid 1 MG in Dextrose 5%/0.45% NS 1,00... IV ONE (04:35)
[2018-04-02 05:15] LABS: BASO # 0.1 K/uL (0.0-0.2); BASO % 1.2 % (0.0-2.0); EOS # 0.1 K/uL (0.0-0.7); EOS % 1.9 % (0.0-4.0); HEMOGLOBIN 15.2 g/dL (12.0-18.0); LYMPH # 2.8 K/uL (1.0-4.3); LYMPH % 41.2 % (20.0-40.0); MEAN CELL VOLUME 99.1 fl (80.0-94.0); MEAN CORPUSCULAR HEMOGLOBIN 33.3 pg (27.0-31.0); MEAN CORPUSCULAR HGB CONC 33.6 g/dL (33.0-37.0); MEAN PLATELET VOLUME 7.8 fl (7.2-11.7); MONO # 0.3 K/uL (0.0-0.8); MONO % 4.7 % (0.0-10.0); NEUT # 3.5 K/uL (1.8-7.0); NRBC % 0.1 % (0.0-0.0); RBC 4.56 Mil/uL (4.40-5.90); RED CELL DISTRIBUTION WIDTH 13.8 % (11.5-14.5); WHITE BLOOD COUNT 6.8 K/uL (4.8-10.8)
[2018-04-02 05:24] LABS: ALB/GLOB RATIO 1.2 (1.0-2.1); ALT/SGPT 41 U/L (21-72); AST/SGOT 66 U/L (17-59); BLOOD UREA NITROGEN 12 mg/dl (9-20); CALCIUM 8.3 mg/dL (8.4-10.2); GFR NON-AFRICAN AMERICAN > 60
--- NOTE | 2018-04-02 07:47 | ED PDOC ---
- Laboratory Results Result Diagrams: 04/02/18 05:05 04/02/18 05:05 Lab Results: Total Bilirubin 0.5 mg/dl (0.2-1.3) 04/02/18 05:05 AST 66 U/L (17-59) H 04/02/18 05:05 ALT 41 U/L (21-72) 04/02/18 05:05 Alkaline Phosphatase 87 U/L (38-126) 04/02/18 05:05 Total Protein 7.5 G/DL (6.3-8.2) 04/02/18 05:05 Albumin 4.0 g/dL (3.5-5.0) 04/02/18 05:05 Globulin 3.4 gm/dL (2.2-3.9) 04/02/18 05:05 Albumin/Globulin Ratio 1.2 (1.0-2.1) 04/02/18 05:05 - ECG O2 Sat by Pulse Oximetry: 95 Medical Decision Making Medical Decision Making: Time: 7:00 Patient was endorsed to me by Dr. Faust pending clinical sobriety. Scribe Attestation: Documented by Edith Panda, acting as a scribe for Nayana Alcantara MD. Provider Scribe Attestation: All medical record entries made by the Scribe were at my direction and personally dictated by me. I have reviewed the chart and agree that the record accurately reflects my personal performance of the history, physical exam, medical decision making, and the department course for this patient. I have also personally directed, reviewed, and agree with the discharge instructions and disposition. Disposition Doctor Will See Patient In The: Office Counseled Patient/Family Regarding: Diagnosis, Need For Followup - Clinical Impression Clinical Impression: Alcohol intoxication - POA Present On Arrival: None - Disposition Disposition: Routine/Home Disposition Time: 12:30 Instructions: Alcohol Abuse and Alcoholism (DC) Forms: [employer] (Armenian)
[2018-04-02 13:27] VITALS: BP 130/89; PULSE 109; RESP 18; TEMP 98.1; O2SAT 98
--- NOTE | 2018-04-02 19:23 | CARD ---
APPROVED REPORT Date of service: 04/02/2018 EKG Measurement Heart [id number] <Conclusion> Sinus tachycardia Otherwise normal ECG
== END 2018-04-02 13:15 | disposition home or self-care (01) ==
LOC: H.ER
DX: F10.129 Alcohol abuse with intoxication, unspecified (principal)
CPT/HCPCS: 80053; 80320; 82948; 85025; 93005; 99284; J3411; J7030; J7042

== ENCOUNTER 2018-04-18 17:30 | Emergency (ER) | payer OTHER ==
[2018-04-18 17:30] VITALS: BMI 27.4
--- NOTE | 2018-04-18 21:22 | ED PDOC ---
HPI: General Adult Time Seen by Provider: 04/18/18 21:08 Chief Complaint (Nursing): Medical Clearance Chief Complaint (Provider): Medical Clearance History Per: Patient History/Exam Limitations: no limitations Additional Complaint(s): Prem Lenz is a 63 year old male with a past medical history of schizophrenia who was brought to the ED by EMS for medical clearance and decontamination. Patient is homeless and was found on the street. He states that he has no medical complaints but reports that PD told him that he had to come to the ED for evaluation. Patient is well known to the ER and provider for alcohol abuse a nd frequent visits. He denies any trauma and arrived to the ED ambulatory and oriented x3. PMD: none provided Past Medical History Reviewed: Historical Data, Nursing Documentation, Vital Signs Vital Signs: Last Vital Signs Temp 98.0 F 04/18/18 17:36 Pulse 104 H 04/18/18 17:36 Resp 18 04/18/18 17:36 BP 111/62 04/18/18 17:36 Pulse Ox 100 04/18/18 17:36 - Medical History PMH: Schizophrenia - Surgical History Surgical History: No Surg Hx - Family History Family History: States: Unknown Family Hx - Living Arrangements Living Arrangements: Other (homeless) - Social History Alcohol: > 2 Drinks/Day - Home Medications Home Medications: Ambulatory Orders Medication Instructions Recorded RX: Ammonium Lactate 12% 1 applic TOP BID #1 bottle 07/14/16 [Lac-Hydrin 12% Lotion (225 g)] RX: Folic Acid 1 mg PO DAILY tab 07/14/16 RX: Multimineral/Multivitamin 1 tab PO DAILY tab 07/14/16 [Therapeutic-M Tab] RX: Nicotine 21 mg/24 hr [Nicoderm 1 patch TD DAILY #30 patch 07/14/16 Cq] RX: QUEtiapine [SEROquel] 400 mg PO HS #60 tab 07/14/16 RX: Thiamine [Vitamin B1 Tab] 100 mg PO DAILY tab 07/14/16 - Allergies Allergies/Adverse Reactions: Allergies Allergy/AdvReac Type Severity Reaction Status Date / Time No Known Allergies Allergy Verified 04/18/18 17:39 Review of Systems ROS Statement: Except As Marked, All Systems Reviewed And Found Negative Physical Exam - Reviewed Nursing Documentation Reviewed: Yes Vital Signs Reviewed: Yes - Physical Exam Comments: GENERAL APPEARANCE: Patient is awake, alert, oriented x 3, in no acute distress. Patient is disheveled appearing with poor hygiene. SKIN: Warm, dry; (-) cyanosis ENMT: Mucous membranes moist. Airway patent: (-) stridor. NECK: Supple, FROM HEART AND CARDIOVASCULAR: (-) irregularity CHEST AND RESPIRATORY: (-) rales, (-) rhonchi, (-) wheezes; breath sounds equal. Respirations even and nonlabored. ABDOMEN: Soft, (-) distention, (-) tenderness, (-) guarding. NEURO AND PSYCH: Mental status as above. Steady gait. Speech: clear. - ECG O2 Sat by Pulse Oximetry: 100 (RA) Pulse Ox Interpretation: Normal Medical Decision Making Medical Decision Making: Time: 21:15 Impression: medical screening exam; homelessness --Patient given opportunity to shower in ED, patient provided with clothing. --No further intervention required in ED as vitals are stable and patient with no complaints. 2144 Diagnostic results d/w the patient in great detail. Diagnosis of homelessness, medical screening examination d/w the patient. Based on history, exam and diagnostic results, plan will be for outpatient follow up with clinic. Patient instructed to follow-up with pmd / referral provided / the clinic in 1- 2 days without fail. Return to the emergency room at any time for any new or worsening symptoms. Patient states he fully agrees with and understands discharge instructions. States that he agrees with the plan and disposition. Verbalized and repeated discharge instructions and plan. I have given the patient opportunity to ask any additional questions. Scribe Attestation: Documented by, Edith Panda acting as a scribe for Vira Bishop PA-C. Provider Scribe Attestation: All medical record entries made by the Scribe were at my direction and personally dictated by me. I have reviewed the chart and agree that the record accurately reflects my personal performance of the history, physical exam, medical decision making, and the department course for this patient. I have also personally directed, reviewed, and agree with the discharge instructions and disposition. Disposition - Clinical Impression Clinical Impression: Homelessness, Encounter for medical screening examination - Patient ED Disposition Is Patient to be Admitted: No Counseled Patient/Family Regarding: Studies Performed, Diagnosis, Need For Followup - Disposition Referrals: [facility] [Outside] Disposition: Routine/Home Disposition Time: 21:45 Condition: STABLE Additional Instructions: La atencin mdica de emergencia que recibi hoy se dirigi a annabelle sntomas agudos. Si le recetaron algn medicamento, llnelo y tmelo segn las indicaciones. Los sntomas pueden tardar varios dais en resolverse. Regrese al Departamento de Emergencias si annabelle sntomas empeoran, no mejoran o si tiene otros problemas. Comunquese con granados mdico dentro de 2 dias para south nueva evaluacin y isaias un seguimiento o llame a nicole de los mdicos / clnicas a los que ornelas sido referido y que figuran en el formulario de Informacin de visita al paciente que se incluye en granados paquete de elías. Lleve todos los documentos que le entregaron al momento del elías junto con todos los medicamentos que est tomando para granados visita de seguimiento. Nuestro tratamiento no puede reemplazar la atencin mdica continua por parte de un proveedor de atencin primaria (PCP) fuera del departamento de emergencias. Instructions: General (DC) Forms: [employer] (Persian) Print Language: GEORGIAN - POA Present On Arrival: None
[2018-04-18 22:08] VITALS: BP 110/70; PULSE 80; RESP 20; TEMP 98.1
[2018-04-20 22:23] VITALS: O2SAT 100
== END 2018-04-18 22:10 | disposition home or self-care (01) ==
LOC: H.ER 17:30
DX: Z59.0 Homelessness (principal); F20.9 Schizophrenia, unspecified

== ENCOUNTER 2018-04-19 17:37 | Emergency (ER) | payer OTHER ==
[2018-04-19 17:38] VITALS: BMI 27.4
[2018-04-19 17:41] VITALS: RESP 16
--- NOTE | 2018-04-19 18:22 | ED PDOC ---
HPI: Psych/Substance Abuse Time Seen by Provider: 04/19/18 18:02 Chief Complaint (Nursing): Alcohol Ingestion Chief Complaint (Provider): alcohol intoxication ED Caveat: Intoxicated History Per: EMS History/Exam Limitations: intoxication Additional Complaint(s): 63yo male, brought in by EMS after patient was found publicly intoxicated, sitting outside in the cold weather. Per EMS, patient minimally arousable in field, however upon arrival to ER, patient noted to be easily arousable. Patient is opening eyes on command and lifting arms on command. Patient does not appear to have signs of frostbite. A full HPI and ROS is unavailable due to patient's intoxicated condition. Past Medical History Reviewed: Historical Data, Nursing Documentation, Vital Signs Vital Signs: Last Vital Signs Temp 98.0 F 04/19/18 17:39 Pulse 88 04/19/18 17:39 Resp 16 04/19/18 17:39 BP 138/74 04/19/18 17:39 Pulse Ox 97 04/19/18 17:39 - Medical History PMH: Schizophrenia Denies: Diabetes, Hepatitis, HIV, HTN, Seizures, Sexually Transmitted Disease - Family History Family History: States: Unknown Family Hx - Immunization History Hx Tetanus Toxoid Vaccination: No Hx Influenza Vaccination: No Hx Pneumococcal Vaccination: No - Home Medications Home Medications: Ambulatory Orders Medication Instructions Recorded RX: Ammonium Lactate 12% 1 applic TOP BID #1 bottle 07/14/16 [Lac-Hydrin 12% Lotion (225 g)] RX: Folic Acid 1 mg PO DAILY tab 07/14/16 RX: Multimineral/Multivitamin 1 tab PO DAILY tab 07/14/16 [Therapeutic-M Tab] RX: Nicotine 21 mg/24 hr [Nicoderm 1 patch TD DAILY #30 patch 07/14/16 Cq] RX: QUEtiapine [SEROquel] 400 mg PO HS #60 tab 07/14/16 RX: Thiamine [Vitamin B1 Tab] 100 mg PO DAILY tab 07/14/16 - Allergies Allergies/Adverse Reactions: Allergies Allergy/AdvReac Type Severity Reaction Status Date / Time No Known Allergies Allergy Verified 04/18/18 17:39 Review of Systems Review Of Systems: ROS cannot be obtained secondary to pt's inabilty to answer questions. (patient intoxicated) Physical Exam - Reviewed Nursing Documentation Reviewed: Yes Vital Signs Reviewed: Yes - Physical Exam Appears: Positive for: No Acute Distress (patient intoxicated, unkempt and foul smellin) Head Exam: Positive for: ATRAUMATIC, NORMAL INSPECTION, NORMOCEPHALIC Skin: Positive for: Normal Color, Warm. Negative for: Cyanosis Eye Exam: Positive for: Normal appearance Neck: Positive for: Supple Cardiovascular/Chest: Positive for: Regular Rate, Rhythm Respiratory: Positive for: Normal Breath Sounds Gastrointestinal/Abdominal: Positive for: Normal Exam, Soft Back: Positive for: Normal Inspection Extremity: Positive for: Normal ROM (FROM of all extremities), Capillary Refill (< 2 seconds), Other (fingers and toes are erythematous but warm to touch; patient fully undressed during exam and no signs of frostbite noted) Neurologic/Psych: Positive for: Alert, Oriented. Negative for: Motor/Sensory Deficits - Laboratory Results Result Diagrams: 04/19/18 18:21 04/19/18 18:21 - ECG O2 Sat by Pulse Oximetry: 97 (RA) Pulse Ox Interpretation: Normal Medical Decision Making Medical Decision Makinyo male with alcohol intoxication plan: -- Observe for sobriety -- Labs 1899 Patient signed out to Dr. Mackey pending labs, clinical sobriety Scribe Attestation: Documented by Cheryle Davis acting as a scribe for Vira Watts MD. Provider Attestation: All medical record entries made by the Scribe were at my direction and personally dictated by me. I have reviewed the chart and agree that the record accurately reflects my personal performance of the history, physical exam, medical decision making, and the department course for this patient. I have also personally directed, reviewed, and agree with the discharge instructions and disposition. Disposition - Clinical Impression Clinical Impression: Alcohol abuse with intoxication - Patient ED Disposition Is Patient to be Admitted: Transfer of Care - Disposition Disposition: Transfer of Care Disposition Time: 19:00 Condition: STABLE Additional Instructions: LE MERCER, thank you for letting us take care of you today. Your provider was Charly Mackey MD and you were treated for ETOH. The emergency medical care you received today was directed at your acute symptoms. If you were prescribed any medication, please fill it and take as directed. It may take several days for your symptoms to resolve. Return to the Emergency Department if your symptoms worsen, do not improve, or if you have any other problems. Please contact your doctor or call one of the physicians/clinics you have been referred to that are listed on the Patient Visit Information form that is included in your discharge packet. Bring any paperwork you were given at discharge with you along with any medications you are taking to your follow up visit. Our treatment cannot replace ongoing medical care by a primary care provider outside of the emergency department. Thank you for allowing the [facility] team to be part of your care today. If you had an X-Ray or CT scan: A Radiologist will review the ED reading if any change in treatment is needed we will contact you. If you had a blood, urine, or wound culture: It will take several days for the r esults, if any change in treatment is needed we will contact you. If you had an STI test: It will take 48 hours for the results. Please call after 1 week if you have not heard back. Instructions: Alcohol Use - When Is Drinking a Problem? Forms: [employer] (Monegasque) Print Language: ETHIOPIAN Patient Signed Over To: Charly Mackey
[2018-04-19 18:25] LABS: BASO # 0.1 K/uL (0.0-0.2); BASO % 1.2 % (0.0-2.0); EOS % 1.1 % (0.0-4.0); HEMOGLOBIN 14.9 g/dL (12.0-18.0); LYMPH # 1.3 K/uL (1.0-4.3); LYMPH % 29.1 % (20.0-40.0); MEAN CELL VOLUME 98.7 fl (80.0-94.0); MEAN CORPUSCULAR HEMOGLOBIN 32.8 pg (27.0-31.0); MEAN CORPUSCULAR HGB CONC 33.3 g/dL (33.0-37.0); MEAN PLATELET VOLUME 8.1 fl (7.2-11.7); MONO # 0.5 K/uL (0.0-0.8); MONO % 11.4 % (0.0-10.0); NEUT # 2.6 K/uL (1.8-7.0); NEUT % 57.2 % (50.0-75.0); NRBC % 0.1 % (0.0-0.0); RBC 4.54 Mil/uL (4.40-5.90); RED CELL DISTRIBUTION WIDTH 13.9 % (11.5-14.5); WHITE BLOOD COUNT 4.6 K/uL (4.8-10.8)
[2018-04-19 18:59] LABS: BLOOD UREA NITROGEN 7 mg/dl (9-20); CALCIUM 9.3 mg/dL (8.4-10.2); GFR NON-AFRICAN AMERICAN > 60
--- NOTE | 2018-04-19 19:15 | ED PDOC ---
- Laboratory Results Result Diagrams: 04/19/18 18:21 04/19/18 18:21 - ECG O2 Sat by Pulse Oximetry: 97 (RA) Pulse Ox Interpretation: Normal Medical Decision Making Medical Decision Making: Receiving sign out: Patient signed out to me by Dr. Watts at 1900 pending clinical sobriety. 23:18 On reevaluation patient is clinically sober. He is stable for discharge home. Diagnosis is alcohol intoxication. Scribe Attestation: Documented by Cheryle Davis acting as a scribe for Charly Mackey MD. Provider Attestation: All medical record entries made by the Scribe were at my direction and p ersonally dictated by me. I have reviewed the chart and agree that the record accurately reflects my personal performance of the history, physical exam, medical decision making, and the department course for this patient. I have also personally directed, reviewed, and agree with the discharge instructions and disposition. Disposition - Clinical Impression Clinical Impression: Alcohol abuse with intoxication - POA Present On Arrival: None - Disposition Disposition: Routine/Home Disposition Time: 23:18 Condition: STABLE Additional Instructions: LE MERCER, thank you for letting us take care of you today. Your provider was Charly Mackey MD and you were treated for ETOH. The emergency medical care you received today was directed at your acute symptoms. If you were prescribed any medication, please fill it and take as directed. It may take several days for your symptoms to resolve. Return to the Emergency Department if your symptoms worsen, do not improve, or if you have any other problems. Please contact your doctor or call one of the physicians/clinics you have been referred to that are listed on the Patient Visit Information form that is i ncluded in your discharge packet. Bring any paperwork you were given at discharge with you along with any medications you are taking to your follow up visit. Our treatment cannot replace ongoing medical care by a primary care provider outside of the emergency department. Thank you for allowing the [facility] team to be part of your care today. If you had an X-Ray or CT scan: A Radiologist will review the ED reading if any change in treatment is needed we will contact you. If you had a blood, urine, or wound culture: It will take several days for the results, if any change in treatment is needed we will contact you. If you had an STI test: It will take 48 hours for the results. Please call after 1 week if you have not heard back. Instructions: Alcohol Use - When Is Drinking a Problem? Forms: [facility] (Syriac) Print Language: YI
[2018-04-20 07:37] VITALS: BP 131/70; PULSE 92; TEMP 98.2
[2018-04-20 20:29] VITALS: O2SAT 97
== END 2018-04-20 06:40 | disposition home or self-care (01) ==
LOC: H.ER 17:37
DX: F10.129 Alcohol abuse with intoxication, unspecified (principal); F20.9 Schizophrenia, unspecified